=== PATIENT | female | born 1990 | race Caucasian/White ===

== ENCOUNTER 2017-03-30 18:26 | Emergency (ER) | payer OTHER ==
[2017-03-30 19:27] VITALS: BP 133/66; TEMP 99
[2017-03-30] MEDS ORDERED: CYCLOBENZAPRINE HCL 10 MG TAB PO ONE (19:31)
[2017-03-30] MEDS ORDERED: KETOROLAC TROMETHAMINE INJ 30 MG/ML VIAL IM ONE (19:31)
[2017-03-30] MEDS ORDERED: predniSONE 20 MG TAB PO ONE (19:31)
--- NOTE | 2017-03-30 19:35 | ED.PDOC ---
History of Present Illness - General Chief Complaint: Lower Extremity Injury Stated Complaint: Rt hip pain Time Seen by Provider: 03/30/17 19:31 Source: patient Exam Limitations: no limitations - History of Present Illness Initial Comments: the patient is a 26-year-old female presented to the emergency room secondary to right low back pain with some sciatica that extends down to just below the knee. The pain started early this morning. She does not remember any recent injury. She does have fibromyalgia and has had chronic back pain in the past and has had an MRI in the past. The patient has tenderness to palpation adjacent to L2-L4 on the right with some associated muscle spasm. She does have some sharp shooting pain pain when the spasms are worse. No incontinence. No loss of sensation. Timing/Duration: unsure Severity: moderate Improving Factors: nothing Worsening Factors: nothing Associated Symptoms: denies symptoms Allergies/Adverse Reactions: Allergies Morphine Allergy (Verified 09/20/13 21:39) Home Medications: Ambulatory Orders Clonazepam [Klonopin] 1 mg PO DAILY 07/11/15 Butabarbital Sodium 03/30/17 Clonazepam 03/30/17 Cyclobenzaprine HCl [Flexeril] 5 mg PO TID PRN #30 tab 03/30/17 Klonopin 03/30/17 Lyrica 03/30/17 Trazodone HCl 03/30/17 Tylenol W/ CODEINE #3 03/30/17 predniSONE [Prednisone] 20 mg PO DAILY #5 tab 03/30/17 Review of Systems - Review of Systems Constitutional: States: no symptoms reported EENTM: States: no symptoms reported Respiratory: States: no symptoms reported Cardiology: States: no symptoms reported Gastrointestinal/Abdominal: States: no symptoms reported Genitourinary: States: no symptoms reported Musculoskeletal: States: see HPI Skin: States: no symptoms reported Neurological: States: see HPI, anxiety Endocrine: States: no symptoms reported All other Systems: No Change from Baseline Past Medical History (General) - Patient Medical History Hx Seizures: No Hx Stroke: No Hx Dementia: No Hx Asthma: No Hx of COPD: No Hx Cardiac Disorders: No Hx Congestive Heart Failure: No Hx Pacemaker: No Hx Hypertension: No Hx Thyroid Disease: No Hx Diabetes: No Hx Gastroesophageal Reflux: No Hx Renal Disease: No Hx of HIV: No Hx MRSA: No Surgical History: appendectomy, cholecystectomy - Vaccination History Hx Influenza Vaccination: No - Social History Hx Tobacco Use: Yes Hx Depression: Yes - Female History Patient is a Female of Child Bearing Age (10 -59 yrs old): Yes Patient : No - Triage Comment ED Triage Comment: chronic pain to rt hip, but this pain is worse per pt/. Family Medical History - Family History Mother Family History: Unknown Living Status: Unknown Physical Exam - Physical Exam General Appearance: Alert, Anxious, No apparent distress Eye Exam: bilateral normal Ears, Nose, Throat: hearing grossly normal Neck: full range of motion, supple Respiratory: no respiratory distress, no accessory muscle use Cardiovascular/Chest: normal peripheral pulses, no edema Peripheral Pulses: radial,right: 2+, radial,left: 2+, dorsalis pedis,right: 2+, dorsalis pedis,left: 2+ Gastrointestinal/Abdominal: non tender, soft Rectal Exam: deferred Back Exam: no vertebral tenderness, CVA tenderness (R) Extremity: normal range of motion, non-tender, normal inspection, no pedal edema , normal capillary refill 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 The patient has had low back problems in the past. The patient was given a dose of Toradol, prednisone and Flexeril here. She'll be continued for 5 days with the prednisone and Flexeril. She does need to do stretching exercises. Topical heat may also help. She should follow up with her primary care doctor towards the end of the week for reevaluation. she has had an MRI in the past. Additional imaging here tonight is unwarranted as it would likely provide no additional benefit. ER warnings were given for any significant worsening. Departure - Departure Clinical Impression: Low back pain Qualifiers: Chronicity: acute Back pain laterality: right Sciatica presence: with sciatica Sciatica laterality: sciatica of right side Qualified Code(s): M54.41 - Lumbago with sciatica, right side Disposition: Discharge to Home or Self Care Condition: Fair Departure Forms: ED Discharge - Pt. Copy, Patient Portal Self Enrollment Instructions: DI for Back Pain With Sciatica Diet: regular diet Activity: increase activity as tolerated Referrals: KENNETH CRAIN [Primary Care Provider] - 1-5 Days Prescriptions: Cyclobenzaprine HCl [Flexeril] 5 mg PO TID PRN #30 tab PRN Reason: Muscle Spasms predniSONE [Prednisone] 20 mg PO DAILY #5 tab Home Medications: Ambulatory Orders Clonazepam [Klonopin] 1 mg PO DAILY 07/11/15 Butabarbital Sodium 03/30/17 Clonazepam 03/30/17 Cyclobenzaprine HCl [Flexeril] 5 mg PO TID PRN #30 tab 03/30/17 Klonopin 03/30/17 Lyrica 03/30/17 Trazodone HCl 03/30/17 Tylenol W/ CODEINE #3 03/30/17 predniSONE [Prednisone] 20 mg PO DAILY #5 tab 03/30/17 Additional Instructions: the patient's 26-year-old presents to emergency room with right low back pain with associated sciatica. The patient has had low back problems in the past. The patient was given a dose of Toradol, prednisone and Flexeril here. She'll be continued for 5 days with the prednisone and Flexeril. She does need to do stretching exercises. Topical heat may also help. She should follow up with her primary care doctor towards the end of the week for reevaluation. she has had an MRI in the past. Additional imaging here tonight is unwarranted as it would likely provide no additional benefit. ER warnings were given for any significant worsening.
[2017-03-30 20:14] VITALS: O2SAT 99
== END 2017-03-30 20:15 | disposition home or self-care (01) ==
LOC: ER 18:26
DX: M54.41 Lumbago with sciatica, right side (principal)
CPT/HCPCS: J1885; J7512

== ENCOUNTER 2017-05-03 09:04 | Emergency (ER) | payer OTHER ==
[2017-05-03] MEDS ORDERED: IBUPROFEN 200 MG TAB PO ONE (09:31)
[2017-05-03] MEDS ORDERED: ONDANSETRON ODT 8 MG TAB PO ONE (09:31)
[2017-05-03] MEDS ORDERED: KETOROLAC TROMETHAMINE INJ 30 MG/ML VIAL IV ONE (11:52)
[2017-05-03] MEDS ORDERED: SODIUM CHLORIDE 0.9% 1000ML 1,000 ML IVS ONE (11:52)
[2017-05-03 12:24] VITALS: TEMP 101.8
[2017-05-03 13:32] VITALS: BP 122/81; O2SAT 94
== END 2017-05-03 13:50 | disposition home or self-care (01) ==
LOC: ER 09:04
DX: R05 Cough (principal); B34.9 Viral infection, unspecified; F17.200 Nicotine dependence, unspecified, uncomplicated; Z88.6 Allergy status to analgesic agent
CPT/HCPCS: 36415; 80053; 81001; 82150; 83690; 84703; 85025; 87040; 87086; 87502; J1885; J7030

== ENCOUNTER 2017-05-04 13:41 | Emergency (ER) | payer OTHER ==
--- NOTE | 2017-05-04 13:50 | ED.PDOC ---
History of Present Illness - General Chief Complaint: General Stated Complaint: fever Time Seen by Provider: 05/04/17 13:47 Source: patient Exam Limitations: no limitations - History of Present Illness Initial Comments: Sheba Bergeron 27 y/o female stated that she was here in the emergency room last night fever and body aches and dry cough and had flu/strep,urine and blood work done which all came back negative.Came back here again for same symptoms no nausea/vomiting.No chronic medical problems. 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 Associated Symptoms: other - see hpi Review of Systems - Review of Systems Constitutional: States: see HPI, fever EENTM: States: no symptoms reported Respiratory: States: see HPI, cough - dry Cardiology: States: no symptoms reported Gastrointestinal/Abdominal: States: no symptoms reported Genitourinary: States: no symptoms reported All other Systems: Reviewed and Negative, No Change from Baseline Past Medical History (General) - Patient Medical History Hx Seizures: No Hx Stroke: No Hx Dementia: No Hx Asthma: No Hx of COPD: No Hx Cardiac Disorders: No Hx Congestive Heart Failure: No Hx Pacemaker: No Hx Hypertension: No Hx Thyroid Disease: No Hx Diabetes: No Hx Gastroesophageal Reflux: No Hx Renal Disease: No Hx of HIV: No Hx MRSA: No Surgical History: no surgical history - Vaccination History Hx Influenza Vaccination: No - Social History Hx Tobacco Use: Yes Hx Depression: Yes Hx Physical Abuse: No Hx Emotional Abuse: No Hx Suspected Abuse: No - Female History Hx Last Menstrual Period: 05/02/17 Patient : No Family Medical History - Family History Mother Family History: Unknown Living Status: Unknown Physical Exam - Physical Exam General Appearance: Alert, Comfortable, No apparent distress Eye Exam: bilateral normal ENT Exam: normal ENT inspection, TMs normal, pharynx normal Neck: full range of motion, supple, trachea midline Respiratory: chest non-tender, lungs clear, normal breath sounds, no respiratory distress Cardiovascular/Chest: regular rate, rhythm, no murmur Gastrointestinal/Abdominal: normal bowel sounds, non tender, soft Extremity: non-tender, no pedal edema, no calf tenderness Skin Exam: normal color, warm/dry Progress - Progress Progress: 05/04/17 13:59 Last Vital Signs Temp 102.9 F H 05/04/17 13:50 Pulse 101 H 05/04/17 13:50 Resp 22 05/04/17 13:50 BP 116/70 05/04/17 13:50 Pulse Ox 96 05/04/17 13:50 Departure - Departure Clinical Impression: Viral illness Time of Disposition: 13:59 Disposition: Discharge to Home or Self Care Condition: Fair Departure Forms: ED Discharge - Pt. Copy, Patient Portal Self Enrollment Instructions: Influenza Referrals: KENNETH CRAIN [Primary Care Provider] - 1-2 Weeks Prescriptions: Oseltamivir Capsule [Tamiflu] 75 mg PO BID 5 Days #10 capsule Home Medications: Ambulatory Orders Clonazepam [Klonopin] 1 mg PO DAILY 07/11/15 Butabarbital Sodium 03/30/17 Clonazepam 03/30/17 Cyclobenzaprine HCl [Flexeril] 5 mg PO TID PRN #30 tab 03/30/17 Klonopin 03/30/17 Lyrica 03/30/17 Trazodone HCl 03/30/17 Tylenol W/ CODEINE #3 03/30/17 predniSONE [Prednisone] 20 mg PO DAILY #5 tab 03/30/17 Oseltamivir Capsule [Tamiflu] 75 mg PO BID 5 Days #10 capsule 05/04/17 Additional Instructions: NEED TO DRINK EXTRA FLUIDS;KEEP HYDRATED;TYLENOL 500 mg every 6 hours for pain/ fever
[2017-05-04 13:55] VITALS: O2SAT 96
[2017-05-04] MEDS ORDERED: ACETAMINOPHEN 500 MG TAB PO ONE (14:05)
[2017-05-04 14:53] VITALS: BP 110/66; TEMP 102.8
== END 2017-05-04 14:50 | disposition home or self-care (01) ==
LOC: ER 13:41
DX: R50.9 Fever, unspecified (principal); B34.9 Viral infection, unspecified; Z87.891 Personal history of nicotine dependence

== ENCOUNTER 2017-11-03 21:47 | Emergency (ER) | payer SELFPAY ==
--- NOTE | 2017-11-03 22:08 | ED.PDOC ---
History of Present Illness - General Chief Complaint: Headache Stated Complaint: headache Time Seen by Provider: 11/03/17 21:51 Source: patient, Vital Signs reviewed Exam Limitations: no limitations Additional Information: 27 YEAR OLD WHITE FEMALE WHO IS 23 WEEKS PRESENTS WITH HEADACHE NUASEA ONSET LAST EVENING SHE HAS HAD SIMILAR HEADACHES IN THE PAST SHE HAS NAUSEA PHOTOPHOBIA NO FEVER NO SKIN RASH NO NECK PAIN OR STIFFNESS NO SORE THROAT NO SINUS SYMPTOMS - History of Present Illness Timing/Duration: 24 hours Severity: mild Improving Factors: nothing Worsening Factors: nothing Associated Symptoms: headaches, nausea/vomiting Allergies/Adverse Reactions: Allergies Morphine Allergy (Verified 09/20/13 21:39) Home Medications: Ambulatory Orders Clonazepam [Klonopin] 1 mg PO DAILY 07/11/15 Butabarbital Sodium 03/30/17 Clonazepam 03/30/17 Cyclobenzaprine HCl [Flexeril] 5 mg PO TID PRN #30 tab 03/30/17 Klonopin 03/30/17 Lyrica 03/30/17 Trazodone HCl 03/30/17 Tylenol W/ CODEINE #3 03/30/17 predniSONE [Prednisone] 20 mg PO DAILY #5 tab 03/30/17 Oseltamivir Capsule [Tamiflu] 75 mg PO BID 5 Days #10 capsule 05/04/17 Review of Systems - Review of Systems Constitutional: States: no symptoms reported EENTM: States: no symptoms reported Respiratory: States: no symptoms reported Cardiology: States: no symptoms reported Gastrointestinal/Abdominal: States: no symptoms reported Genitourinary: States: no symptoms reported Musculoskeletal: States: no symptoms reported Skin: States: no symptoms reported Neurological: States: see HPI Endocrine: States: no symptoms reported Past Medical History (General) - Patient Medical History Hx Seizures: No Hx Stroke: No Hx Dementia: No Hx Asthma: No Hx of COPD: No Hx Cardiac Disorders: No Hx Congestive Heart Failure: No Hx Pacemaker: No Hx Hypertension: No Hx Thyroid Disease: No Hx Diabetes: No Hx Gastroesophageal Reflux: No Hx Renal Disease: No Hx of HIV: No Hx MRSA: No Surgical History: appendectomy, cholecystectomy - Vaccination History Hx Tetanus, Diphtheria Vaccination: No Hx Influenza Vaccination: No Hx Pneumococcal Vaccination: No - Social History Hx Tobacco Use: Yes Hx Depression: Yes Hx Physical Abuse: No Hx Emotional Abuse: No Hx Suspected Abuse: No - Female History Hx Last Menstrual Period: 05/02/17 Patient : Yes - 23 weeks IUP Family Medical History - Family History Mother Family History: Unknown Living Status: Unknown Physical Exam - Physical Exam General Appearance: Alert Eye Exam: bilateral normal Ears, Nose, Throat: hearing grossly normal, normal ENT inspection, normal pharynx Neck: non-tender, full range of motion, supple Respiratory: chest non-tender, lungs clear, normal breath sounds, no respiratory distress, no accessory muscle use, respiratory distress Cardiovascular/Chest: normal peripheral pulses, regular rate, rhythm, no edema, no gallop, no JVD, no murmur Peripheral Pulses: radial,right: 2+, radial,left: 2+, femoral,right: 2+, femoral ,left: 2+, popliteal,right: 2+, popliteal,left: 2+ Gastrointestinal/Abdominal: normal bowel sounds, non tender, soft, other - 23 WEEKS IUP Back Exam: normal inspection, no CVA tenderness, no vertebral tenderness Extremity: normal range of motion, non-tender, normal inspection 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 Copy, Patient Portal Self Enrollment Instructions: DI for Headache Referrals: KENNETH CRAIN [Primary Care Provider] - 1-2 Weeks Home Medications: Ambulatory Orders Clonazepam [Klonopin] 1 mg PO DAILY 07/11/15 Butabarbital Sodium 03/30/17 Clonazepam 03/30/17 Cyclobenzaprine HCl [Flexeril] 5 mg PO TID PRN #30 tab 03/30/17 Klonopin 03/30/17 Lyrica 03/30/17 Trazodone HCl 03/30/17 Tylenol W/ CODEINE #3 03/30/17 predniSONE [Prednisone] 20 mg PO DAILY #5 tab 03/30/17 Oseltamivir Capsule [Tamiflu] 75 mg PO BID 5 Days #10 capsule 05/04/17
[2017-11-03] MEDS ORDERED: fentaNYL CITRATE INJ 50 MCG/ML AMP IM ONE (22:10)
[2017-11-03] MEDS ORDERED: PROMETHAZINE HCL INJ 25 MG/ML VIAL IM ONE (22:11)
[2017-11-03 23:32] VITALS: BP 108/72; TEMP 98.4; O2SAT 98
== END 2017-11-03 23:32 | disposition home or self-care (01) ==
LOC: ER 21:47
DX: O99.89 Other specified diseases and conditions complicating pregnancy, childbirth and the puerperium (principal); G43.909 Migraine, unspecified, not intractable, without status migrainosus; O99.342 Other mental disorders complicating pregnancy, second trimester; F32.9 Major depressive disorder, single episode, unspecified; Z3A.23 23 weeks gestation of pregnancy; Z87.891 Personal history of nicotine dependence; Z88.5 Allergy status to narcotic agent
CPT/HCPCS: J2550; J3010

== ENCOUNTER 2018-01-30 19:22 | Emergency (ER) | payer MEDICAID ==
[2018-01-30] MEDS ORDERED: SODIUM CHLORIDE 0.9% 1000ML 1,000 ML IVS ONE (20:07)
[2018-01-30] MEDS ORDERED: ONDANSETRON INJ 4 MG/2 ML VIAL IV ONE (20:08)
--- NOTE | 2018-01-30 20:13 | ED.PDOC ---
History of Present Illness - General Chief Complaint: GI Problem Stated Complaint: 35 wk gest N/V Time Seen by Provider: 01/30/18 19:59 Source: patient Exam Limitations: no limitations - History of Present Illness Initial Comments: Patient is a at 35 weeks by US who presents with N/V since this morning. She says that she has bilateral LQ pain as well. She also says that she has felt light-headed. She has felt "hot-flashes" but no fever. No diarrhea. She had "morning sickness" with her first three pregnancies but never any N/V this late. The fetus is very active and moving above baseline. No vaginal bleeding or other discharge. No dysuria or hematuria. No other complaints. Timing/Duration: other - 12 hours Severity: moderate Improving Factors: nothing Worsening Factors: nothing Associated Symptoms: loss of appetite Allergies/Adverse Reactions: Allergies Morphine Allergy (Verified 09/20/13 21:39) Home Medications: Ambulatory Orders Clonazepam [Klonopin] 1 mg PO DAILY 07/11/15 Butabarbital Sodium 03/30/17 Clonazepam 03/30/17 Cyclobenzaprine HCl [Flexeril] 5 mg PO TID PRN #30 tab 03/30/17 Klonopin 03/30/17 Lyrica 03/30/17 Trazodone HCl 03/30/17 Tylenol W/ CODEINE #3 03/30/17 predniSONE [Prednisone] 20 mg PO DAILY #5 tab 03/30/17 Oseltamivir Capsule [Tamiflu] 75 mg PO BID 5 Days #10 capsule 05/04/17 Review of Systems - Review of Systems Constitutional: States: no symptoms reported EENTM: States: no symptoms reported Respiratory: States: no symptoms reported Cardiology: States: no symptoms reported Gastrointestinal/Abdominal: States: see HPI Genitourinary: States: no symptoms reported Musculoskeletal: States: no symptoms reported Skin: States: no symptoms reported Neurological: States: no symptoms reported Endocrine: States: no symptoms reported Hematologic/Lymphatic: States: no symptoms reported Past Medical History (General) - Patient Medical History Hx Seizures: No Hx Stroke: No Hx Dementia: No Hx Asthma: No Hx of COPD: No Hx Cardiac Disorders: No Hx Congestive Heart Failure: No Hx Pacemaker: No Hx Hypertension: No Hx Thyroid Disease: No Hx Diabetes: No Hx Gastroesophageal Reflux: No Hx Renal Disease: No Hx of HIV: No Hx MRSA: No Surgical History: appendectomy, cholecystectomy - Vaccination History Hx Tetanus, Diphtheria Vaccination: Yes Hx Influenza Vaccination: No Hx Pneumococcal Vaccination: No - Social History Hx Tobacco Use: No Hx Alcohol Use: No Hx Depression: Yes Hx Physical Abuse: No Hx Emotional Abuse: No Hx Suspected Abuse: No - Female History Patient is a Female of Child Bearing Age (10 -59 yrs old): Yes Hx Last Menstrual Period: 05/02/17 Patient : Yes Expected Date of Delivery:: 03/02/18 Hx Gestational Age: 35 Family Medical History - Family History Mother Family History: Unknown Living Status: Unknown Physical Exam - Physical Exam General Appearance: Alert Ears, Nose, Throat: normal ENT inspection Neck: non-tender, full range of motion, supple Respiratory: lungs clear, normal breath sounds Cardiovascular/Chest: normal peripheral pulses, regular rate, rhythm, no edema Gastrointestinal/Abdominal: normal bowel sounds, non tender, soft, other - Gravid appearance Back Exam: normal inspection, no CVA tenderness Extremity: normal range of motion, non-tender, normal inspection Neurologic: no motor/sensory deficits, alert, normal mood/affect, oriented x 3 Skin Exam: normal color Lymphatic: no adenopathy Progress - Progress Progress: 01/30/18 21:58 Laboratory Tests 01/30/18 01/30/18 01/30/18 20:00 20:20 20:20 WBC 11.4 H RBC 4.19 L Hgb 11.0 L Hct 33.6 L MCV 80.1 L MCH 26.2 L MCHC 32.8 L RDW 14.0 Plt Count 246 MPV 7.5 Absolute Neuts (auto) 8.60 H Absolute Lymphs (auto) 1.60 Absolute Monos (auto) 1.20 H Absolute Eos (auto) 0.00 Absolute Basos (auto) 0.00 Neutrophils % 75.0 Lymphocytes % 13.7 L Monocytes % 10.7 H Eosinophils % 0.3 L Basophils % 0.3 Sodium 136 Potassium 3.8 Chloride 106 Carbon Dioxide 21 Anion Gap 12.8 BUN 12 Creatinine 0.50 L BUN/Creatinine Ratio 24.0 H Random Glucose 100 Serum Osmolality 271.8 L Calcium 8.7 Total Bilirubin 0.5 AST 16 ALT 11 Alkaline Phosphatase 97 Serum Total Protein 6.9 Albumin 2.7 L Globulin 4.2 H Albumin/Globulin Ratio 0.6 L Urine Color Yellow Urine Appearance Cloudy Urine pH 7.0 Ur Specific Reynolds 1.020 Urine Protein Negative Urine Glucose (UA) Negative Urine Ketones Negative Urine Blood Negative Urine Nitrite Negative Urine Bilirubin Negative Urine Urobilinogen 1.0 Ur Leukocyte Esterase Negative Urine RBC 0-1 Urine WBC 3-5 H Ur Epithelial Cells 0 Urine Bacteria Rare Patient's nausea resolved with Zofran 4 mg IV x one. She was given NS one liter IV x one and she became hungry after that. U/S showed single intrauterine in cephalic presentation. FHTs 145. Fundal placenta with no abnormalities. Patient discharged with Zofran ODT and instructed to see her OB/ Psychiatric Security Nurse as scheduled on Friday. Questions were elicited and answered. The patient voiced understanding and agreement with the plan. Departure - Departure Clinical Impression: Nausea and vomiting during , Gastroenteritis Disposition: Discharge to Home or Self Care Condition: Good Departure Forms: ED Discharge - Pt. Copy, Patient Portal Self Enrollment Diet: resume usual diet, other - increase oral fluids Activity: increase activity as tolerated Referrals: KENNETH CRAIN [Primary Care Provider] - 1-2 Weeks Home Medications: Ambulatory Orders Clonazepam [Klonopin] 1 mg PO DAILY 07/11/15 Butabarbital Sodium 03/30/17 Clonazepam 03/30/17 Cyclobenzaprine HCl [Flexeril] 5 mg PO TID PRN #30 tab 03/30/17 Klonopin 03/30/17 Lyrica 03/30/17 Trazodone HCl 03/30/17 Tylenol W/ CODEINE #3 03/30/17 predniSONE [Prednisone] 20 mg PO DAILY #5 tab 03/30/17 Oseltamivir Capsule [Tamiflu] 75 mg PO BID 5 Days #10 capsule 05/04/17 Additional Instructions: Increase oral fluids. If vomiting continues more than 48 hours without the development of diarrhea, return to the E.R. See your funeral workers on Friday as scheduled. Take the medication as directed.
[2018-01-30 21:27] VITALS: TEMP 97.8
--- NOTE | 2018-01-30 21:50 | US ---
EXAM DESCRIPTION: OB ,Limited CLINICAL HISTORY: abdominal pain COMPARISON: None. IMPRESSION: Limited OB images were submitted. There is a single intrauterine in cephalic presentation. heart motion was calculated at 145 bpm. Placenta is fundal and within normal limits. Amniotic fluid index was calculated at 17.9 cm. Electronically signed by: Justin Gradna MD 01/30/2018 9:49 PM CDT
[2018-01-30] MEDS ORDERED: ONDANSETRON ODT (ER DISP) 8 MG TAB PO ONE (22:01)
[2018-01-30 22:32] VITALS: BP 114/74; O2SAT 99
== END 2018-01-30 22:32 | disposition home or self-care (01) ==
LOC: ER 19:22
DX: O99.613 Diseases of the digestive system complicating pregnancy, third trimester (principal); K52.9 Noninfective gastroenteritis and colitis, unspecified; Z90.49 Acquired absence of other specified parts of digestive tract; F32.9 Major depressive disorder, single episode, unspecified; O99.343 Other mental disorders complicating pregnancy, third trimester; Z3A.35 35 weeks gestation of pregnancy; Z88.5 Allergy status to narcotic agent
CPT/HCPCS: 36415; 76815; 80053; 81001; 85025; J2405; J7030

== ENCOUNTER 2018-05-06 10:13 | Emergency (ER) | payer SELFPAY ==
--- NOTE | 2018-05-06 10:43 | ED.PDOC ---
History of Present Illness - General Chief Complaint: General Stated Complaint: Fell last night landed on tail bone Time Seen by Provider: 05/06/18 10:24 Source: patient Exam Limitations: no limitations - History of Present Illness Initial Comments: Sheba Bergeron 28 y/o female came to ER after falling on a water puddle that she accidentally spilled on the floor she slipped and fell on her buttocks then had constant no radiating sharp pains on her bottom.No bowel or bladder dysfunction no weakness.Denies any other injuries. Allergies/Adverse Reactions: Allergies Morphine Allergy (Verified 09/20/13 21:39) Home Medications: Ambulatory Orders busPIRone HCL [Buspar] 5 mg PO DAILY 05/06/18 Review of Systems - Review of Systems Constitutional: States: no symptoms reported EENTM: States: no symptoms reported Respiratory: States: no symptoms reported Cardiology: States: no symptoms reported Musculoskeletal: States: see HPI, back pain All other Systems: Reviewed and Negative, No Change from Baseline Past Medical History (General) - Patient Medical History Hx Seizures: No Hx Stroke: No Hx Dementia: No Hx Asthma: No Hx of COPD: No Hx Cardiac Disorders: No Hx Congestive Heart Failure: No Hx Pacemaker: No Hx Hypertension: No Hx Thyroid Disease: No Hx Diabetes: No Hx Gastroesophageal Reflux: No Hx Renal Disease: No Hx of HIV: No Hx MRSA: No Surgical History: appendectomy, cholecystectomy, other - btl - Vaccination History Hx Tetanus, Diphtheria Vaccination: Yes Hx Influenza Vaccination: No Hx Pneumococcal Vaccination: No - Social History Hx Tobacco Use: No Hx Alcohol Use: No Hx Depression: Yes Hx Physical Abuse: No Hx Emotional Abuse: No Hx Suspected Abuse: No - Female History Hx Last Menstrual Period: 05/02/17 Patient : Yes Expected Date of Delivery:: 03/02/18 Hx Gestational Age: 35 Family Medical History - Family History Mother Family History: Unknown Living Status: Unknown Physical Exam - Physical Exam General Appearance: Alert, Comfortable, No apparent distress Eye Exam: bilateral normal Ears, Nose, Throat: hearing grossly normal, normal ENT inspection Neck: non-tender, full range of motion, supple Respiratory: chest non-tender, lungs clear, normal breath sounds Cardiovascular/Chest: normal peripheral pulses, regular rate, rhythm, no murmur Peripheral Pulses: radial,right: 2+, radial,left: 2+ Gastrointestinal/Abdominal: non tender, soft Rectal Exam: normal exam Back Exam: no CVA tenderness, other - tenderness sacrum Neurologic: no motor/sensory deficits, alert Skin Exam: normal color, warm/dry Progress - Progress Progress: 05/06/18 11:51 Vital Signs - 8 hr 05/06/18 10:17 Temperature 97.7 F Pulse Rate [ 90 Left Radial] Respiratory 20 Rate Blood Pressure 128/88 [Left Arm] O2 Sat by Pulse 98 Oximetry 05/06/18 11:56 x-ray result discuss with patient - EKG/XRAY/CT XRAY: sacrum coccyx-no fracture noted Departure - Departure Clinical Impression: Fall Qualifiers: Encounter type: initial encounter Qualified Code(s): W19.XXXA - Unspecified fall, initial encounter Contusion of sacral region Qualifiers: Encounter type: initial encounter Qualified Code(s): S30.0XXA - Contusion of lower back and pelvis, initial encounter Time of Disposition: 11:52 Condition: Fair Departure Forms: ED Discharge - Pt. Copy, Patient Portal Self Enrollment Instructions: Contusion (DC) Referrals: KENNETH CRAIN [Primary Care Provider] - 1-2 Weeks Home Medications: Ambulatory Orders busPIRone HCL [Buspar] 5 mg PO DAILY 05/06/18 Additional Instructions: Ice pack to affected area 20 minutes 3 x a day for 5 days or until better;May take over the counter Alve 1-2 tablets am/pm for pain until better
--- NOTE | 2018-05-06 11:48 | RAD ---
EXAM DESCRIPTION: Lumbar Spine 3 Views CLINICAL HISTORY: 28 years Female, fall/pain COMPARISON: None available. FINDINGS: The vertebral body heights are well-maintained with no acute compression deformity. The intervertebral disc spaces are well preserved. No evidence of spondylolysis or spondylolisthesis. Mild facet arthropathy is noted at L5-S1 level. The visualized prevertebral and paravertebral soft tissues appear grossly unremarkable. IMPRESSION: Mild bilateral facet arthropathy is noted at L5-S1 level. Electronically signed by: Thu Dukes MD 05/06/2018 11:46 AM [facility]
--- NOTE | 2018-05-06 11:49 | RAD ---
EXAM DESCRIPTION: Sacrum Coccyx CLINICAL HISTORY: 28 years Female, fall/pain COMPARISON: None. TECHNIQUE: 2 views of the sacrum and coccyx were obtained. FINDINGS: The visualized bones appear well mineralized. No acute fracture or dislocation. IMPRESSION: Normal radiographs of the sacrum and coccyx. Electronically signed by: Thu Dukes MD 05/06/2018 11:46 AM [facility]
[2018-05-06 12:01] VITALS: BP 122/86; O2SAT 96
[2018-05-06 12:06] VITALS: TEMP 97
== END 2018-05-06 12:03 | disposition home or self-care (01) ==
LOC: ER 10:13
DX: S30.0XXA Contusion of lower back and pelvis, initial encounter (principal); F32.9 Major depressive disorder, single episode, unspecified; W01.0XXA Fall on same level from slipping, tripping and stumbling without subsequent striking against object, initial encounter; Z79.899 Other long term (current) drug therapy; Z88.5 Allergy status to narcotic agent; Y92.9 Unspecified place or not applicable

== ENCOUNTER 2018-09-17 | Emergency (ER) | payer SELFPAY | END 2018-09-17 20:53 | disposition home or self-care (01) ==

== ENCOUNTER 2018-12-27 13:07 | Emergency (ER) | payer OTHER ==
[2018-12-27 13:30] VITALS: TEMP 98.6
[2018-12-27] MEDS ORDERED: KETOROLAC TROMETHAMINE INJ 30 MG/ML VIAL IM ONE (13:34)
--- NOTE | 2018-12-27 13:44 | RAD ---
EXAM:Chest,2 Views CLINICAL INDICATION: Cough COMPARISON: There is no previous study for comparison. FINDINGS:Two views of the chest were obtained. The heart size is normal. The pulmonary vascularity is unremarkable. Mild retrocardiac infiltrates are seen in the left lower lobes is as for pneumonia. The lungs are otherwise clear. IMPRESSION: Mild left lower lobe infiltrates, suspicious for pneumonia. Electronically signed by: Don Terry MD 12/27/2018 1:42 PM CDT
--- NOTE | 2018-12-27 13:52 | ED.PDOC ---
History of Present Illness - General Chief Complaint: Respiratory Problem Stated Complaint: cough, shoulder pain Time Seen by Provider: 12/27/18 13:33 - History of Present Illness Comments: c/o cough since few day getting worse , yesterday woke with chest pain and sob on breathing , pain is getting worse on movement and breathing , +ve for tenderness on the L side , no wheeing Improving Factors: rest Worsening Factors: movement Allergies/Adverse Reactions: Allergies Morphine Allergy (Verified 09/20/13 21:39) Home Medications: Ambulatory Orders busPIRone HCL [Buspar] 5 mg PO DAILY 05/06/18 Baclofen 5 mg PO DAILY PRN #7 tab 08/20/18 predniSONE [Prednisone] 20 mg PO DAILY #5 tab 08/20/18 Bbvimtipocffi-Qvdx-Ywuklbeynp [Fioricet] 1 ea PO Q8H PRN #10 tab 09/17/18 Benzonatate 200 mg PO TID #10 cap 12/27/18 levoFLOXacin 500MG IV [Levaquin 500MG IV] 500 mg IVPB DAILY #10 bag 12/27/18 Review of Systems - Review of Systems Constitutional: States: no symptoms reported EENTM: States: no symptoms reported Respiratory: States: see HPI Cardiology: States: no symptoms reported Gastrointestinal/Abdominal: States: no symptoms reported Genitourinary: States: no symptoms reported Musculoskeletal: States: no symptoms reported Skin: States: no symptoms reported Neurological: States: no symptoms reported Endocrine: States: no symptoms reported Hematologic/Lymphatic: States: no symptoms reported All other Systems: Reviewed and Negative Past Medical History (General) - Patient Medical History Hx Seizures: No Hx Stroke: No Hx Dementia: No Hx Asthma: No Hx of COPD: No Hx Cardiac Disorders: No Hx Congestive Heart Failure: No Hx Pacemaker: No Hx Hypertension: No Hx Thyroid Disease: No Hx Diabetes: No Hx Gastroesophageal Reflux: No Hx Renal Disease: No Hx of HIV: No Hx MRSA: No Surgical History: appendectomy, cholecystectomy, other - Vaccination History Hx Tetanus, Diphtheria Vaccination: Yes Hx Influenza Vaccination: Yes Hx Pneumococcal Vaccination: No - Social History Hx Tobacco Use: Yes Hx Alcohol Use: No Hx Substance Use: No Hx Depression: Yes Hx Physical Abuse: No Hx Emotional Abuse: No Hx Suspected Abuse: No - Female History Hx Last Menstrual Period: 05/02/17 Patient : No Expected Date of Delivery:: 03/02/18 Hx Gestational Age: 37 Family Medical History - Family History Mother Family History: Unknown Living Status: Unknown Hx Family Hypertension: Yes Physical Exam - Physical Exam General Appearance: Alert, Well Developed, Well Groomed, Well Hydrated, Well Nourished ENT Exam: normal ENT inspection, hearing grossly normal Neck: non-tender, full range of motion, supple Respiratory: lungs clear - Tenderness present on the L side of the ant and post chest, normal breath sounds Cardiovascular/Chest: normal peripheral pulses, regular rate, rhythm, no edema Departure - Departure Clinical Impression: Pneumathemia, Pneumonia Disposition: Discharge to Home or Self Care Condition: Good Departure Forms: ED Discharge - Pt. Copy, Patient Portal Self Enrollment Diet: resume usual diet Activity: increase activity as tolerated, no exercise, no lifting, walking as tolerated Referrals: Padmini Mercer [employer] [Primary Care Provider] - 1-2 Weeks Home Medications: Ambulatory Orders busPIRone HCL [Buspar] 5 mg PO DAILY 05/06/18 Baclofen 5 mg PO DAILY PRN #7 tab 08/20/18 predniSONE [Prednisone] 20 mg PO DAILY #5 tab 08/20/18 Lqolsudisuqem-Ahab-Toplhitswl [Fioricet] 1 ea PO Q8H PRN #10 tab 09/17/18 Benzonatate 200 mg PO TID #10 cap 12/27/18 levoFLOXacin 500MG IV [Levaquin 500MG IV] 500 mg IVPB DAILY #10 bag 12/27/18
[2018-12-27 13:55] VITALS: BP 104/65; O2SAT 95
[2018-12-27] MEDS ORDERED: levoFLOXacin 500 MG TAB PO ONE (13:56)
== END 2018-12-27 14:10 | disposition home or self-care (01) ==
LOC: ER 13:07
DX: T79.0XXA Air embolism (traumatic), initial encounter (principal); J18.9 Pneumonia, unspecified organism; F32.9 Major depressive disorder, single episode, unspecified; Z87.891 Personal history of nicotine dependence; Z79.899 Other long term (current) drug therapy; Z88.5 Allergy status to narcotic agent; X58.XXXA Exposure to other specified factors, initial encounter; Y92.9 Unspecified place or not applicable
CPT/HCPCS: 71046; J1885